=== PATIENT | female | born 1960 | race Caucasian/White ===

== ENCOUNTER 2016-07-06 02:22 | Emergency (ER) | payer OTHER ==
[~2016-07-06] VITALS: Ht 162.6 cm; Wt 81.6 kg
[2016-07-06 02:22] VITALS: BP 144/92; PULSE 96; RESP 20; TEMP 98.1; O2SAT 98
--- NOTE | 2016-07-06 02:34 | NUR ---
Patient to ER bed 3 to gown for evaluation. Side rails up. Report given to STEPHENIE SCHMIDT.
--- NOTE | 2016-07-06 02:35 | NUR ---
PT BIB [facility]UL[facility] FROM HOME C/O RIGHT LEG PAIN. PAIN SCALE 10/10. PT STATED THAT SHE TWIST HER LEG ON BAD WAY.
--- NOTE | 2016-07-06 02:40 | NUR ---
ER at bedside examining patient.
[2016-07-06] MEDS ORDERED: HYDROmorphone 1 MG INJ. 1 MG/ML AMPUL IM ONE ×2 (03:45→06:00)
--- NOTE | 2016-07-06 06:38 | NUR ---
Patient to be transferred to [facility] . Is being transferred due to higher level of care. Receiving facility has accepting physician and available space. ER physician has signed transfer form. Patient or responsible democrat has agreed to transfer and signed form. Patient belongings inventoried and will be sent with patient. Copy of nursing notes, lab reports, EKG, Physicians Orders and X-rays to be sent with patient. Report called to ARMIDA SCHMIDT at receiving facility. Receiving physician is DR DAY. [facility] has been called for transfer.
[2016-07-06 06:39] VITALS: BP 126/77; PULSE 87; RESP 20; TEMP 98.1; O2SAT 96
== END 2016-07-06 06:39 | disposition short-term general hospital (02) ==
LOC: SED 02:22
DX: S82.191A Other fracture of upper end of right tibia, initial encounter for closed fracture (principal); S82.831A Other fracture of upper and lower end of right fibula, initial encounter for closed fracture; M06.849 Other specified rheumatoid arthritis, unspecified hand; W18.40XA Slipping, tripping and stumbling without falling, unspecified, initial encounter; Y93.89 Activity, other specified; Y92.89 Other specified places as the place of occurrence of the external cause; Y99.8 Other external cause status
CPT/HCPCS: 29505; 73590; 96372; 99285; J1170